=== PATIENT | female | born 1965 | race American Indian/Alaskan Native ===

== ENCOUNTER 2017-07-04 06:02 | Day surgery (SDC) | payer BC ==
[2017-07-04] MEDS ORDERED: MARCAINE 0.25% INFILTRATI ONE ×2 (06:34→07:24)
[2017-07-04] MEDS ORDERED: XYLOCAINE 1% 20 mL ONE (06:34)
[2017-07-04] MEDS ORDERED: NEOSPORIN GU IR ONE (06:35)
[2017-07-04] MEDS ORDERED: DECADRON ONE (06:35)
--- NOTE | 2017-07-04 06:52 | Anesthesia Day of Surgery ---
Anesthesia Day of Surgery - Day of Surgery Patient Examined: Yes Patient H&P Reviewed: Yes Patient is NPO: Yes
--- NOTE | 2017-07-04 06:53 | Anesthesia Consultation ---
Anesthesia Consult and Med Hx Date of service: 07/04/17 - Airway Anesthetic Teeth Evaluation: Good ROM Head & Neck: Adequate Mental/Hyoid Distance: Adequate Mallampati Class: Class III Intubation Access Assessment: Possibly Difficult - Pulmonary Exam CTA: Yes - Cardiac Exam Cardiac Exam: RRR - Pre-Operative Health Status ASA Pre-Surgery Classification: ASA3 Proposed Anesthetic Plan: General (GA with LMA ok, PONV scop patch behind ear, denies GERD) - Pulmonary Hx Smoking: No Hx Sleep Apnea: No (EDWARD PRE SCREEN LOW RISK) - Cardiovascular System Hx Hypertension: No - Hematic Hx Anemia: Yes (NOT RECENT) - Other Systems Hx Cancer: No
[2017-07-04] MEDS ORDERED: NACL BACTERIOSTATIC INFILTRATI ONE (06:54)
[2017-07-04] MEDS ORDERED: VERSED IV NR (07:00)
[2017-07-04] MEDS ORDERED: TRANSDERM-SCOP TD NR (07:00)
[2017-07-04] MEDS ORDERED: ANCEF/STERILE WATER 2 GM/20 ML IV NR (07:00)
[2017-07-04] MEDS ORDERED: LACTATED RINGERS 1,000 ML IV SCH (07:00)
[2017-07-04] MEDS ORDERED: DIPRIVAN 10 MG/ML IV ONE (07:17)
[2017-07-04] MEDS ORDERED: SUBLIMAZE ONE (07:17)
[2017-07-04] MEDS ORDERED: XYLOCAINE MPF 2% ONE (07:18)
[2017-07-04] MEDS ORDERED: NACL 0.9% IR ONE (07:24)
[2017-07-04] MEDS ORDERED: XYLOCAINE MPF 1% INFILTRATI ONE (07:24)
[2017-07-04] MEDS ORDERED: DECADRON IM ONE (09:00)
[2017-07-04] MEDS ORDERED: ZOFRAN ONE (09:12)
[2017-07-04] MEDS ORDERED: TORADOL ONE (09:12)
--- NOTE | 2017-07-04 09:31 | Post Operative Note ---
Pre-op diagnosis: 1. Hallux valgus 2. Hammer toe 2-5 3. Soft tissue mass all right foot. Post-op diagnosis: same Findings: see operative report. Procedure: 1. Bo bunionectomy right side. 2. PIPJ arthroplasty digits two, four and five right. 3. Flexor set digit two and three right side. 4. Excision of mass right ankle. Surgeon: THEO TORRES Estimated blood loss: minimal Pathology: list (Mass right ankle) Specimen disposition: to lab Condition: stable Disposition: same day
--- NOTE | 2017-07-04 09:32 | Discharge Summary ---
Short Stay Discharge Plan Activity: advance as tolerated Weight Bearing Status: Touch Down Weight Bearing Diet: regular Wound: keep clean and dry Follow up with: ANNMARIE DISLA [Other] - 7 Days
[2017-07-04] MEDS ORDERED: DILAUDID IV PRN (10:08)
[2017-07-04] MEDS ORDERED: PERCOCET 5/325 PO NR (11:05)
[2017-07-04 11:36] VITALS: BP 130/80
--- NOTE | 2017-07-04 15:39 | Post Anesthesia Evaluation ---
- Post Anesthesia Evaluation Patient Participated: Yes Airway Patent: Yes Stable Respiratory Function: Yes Nausea/Vomiting: No Temp > 96.8F: Yes Pain Manageable: Yes Adequeate Hydration: Yes Anesthesia Complications: No
--- NOTE | 2017-07-06 00:01 | Operative Report ---
SURGEON: Gonsalo Pimentel DPM [employer]: None. PREOPERATIVE DIAGNOSES: 1. Painful hallux abductovalgus deformity, right foot. 2. Painful hammertoe deformities digits 2, 3, 4, and 5, right foot. 3. Soft tissue mass, right ankle. POSTOPERATIVE DIAGNOSIS: 1. Painful hallux abductovalgus deformity, right foot. 2. Painful hammertoe deformities digits 2, 3, 4, and 5 The right foot 3. Soft tissue mass, right ankle. PROCEDURE: 1. Modified Nelson bunionectomy with cavus osteotomy, right foot. 2. Proximal interphalangeal joint arthroplasty digits 2, 4, and 5, right foot. 3. Flexor set digits 2 and 3, right foot. 4. Excision, soft tissue mass, right ankle. ANESTHESIA: LMA anesthesia with local anesthetic consisting of 1% lidocaine plain and 0.25% Marcaine plain 50:50 mixture x 10 mL. HEMOSTASIS: Pneumatic calf tourniquet 250 mmHg x 96 minutes. ESTIMATED BLOOD LOSS: Less than 10 mL. MATERIALS: 2.7 mm fully threaded cortical screws x 2, one measuring 18 mm, one measuring 16 mm. INJECTABLES: Local as above. PATHOLOGY: Soft tissue mass, right ankle sent. COMPLICATIONS: None. OPERATIVE SUMMARY: The patient was deemed appropriate surgical candidate, brought to the operating room and placed on the operating table in normal supine position. Following induction of adequate general inhalational anesthesia, the right foot was blocked about the forefoot region as well as the ankle on the right side. The right foot, ankle, and leg were prepped and draped in the usual sterile fashion. After exsanguination, tourniquet was inflated and the following procedures were then carried out. MODIFIED NELSON BUNIONECTOMY WITH TONIA WITH OSTEOTOMY, RIGHT FOOT: Attention was directed to the dorsal medial aspect of the first metatarsophalangeal joint on the right side where a 6 cm curvilinear incision was placed overlying this area. Dissection was carried through skin layer down to the level of superficial fascia with care to direct neurovascular structures, used electrocautery deemed necessary for surgical hemostasis. Dissection was carried through this layer down to the level of deep fascia. Deep fascia was incised overlying the interspace. Dissection through the interspace revealed the level of the adductor tendon. This tendon was transected at its insertion on the fibular sesamoid. The lateral collateral ligament was also released. Attention was then directed medially where a T-shaped capsular or periosteal incision was carried out, allowing for freeing of the metatarsal head. A very large bony prominence was noted in this area consisting of the dorsal enlarged tibial epicondyle. This was removed with a sagittal saw. A Chevron-type osteotomy was then carried out first metatarsal head with a long dorsal arm. This allowed for lateral translation of the metatarsal head and then placement of internal fixation. This was accomplished in standard cavus fashion utilizing AO techniques. Excellent compression was achieved. At this time, the medial overhanging wedge of bone was removed with a sagittal saw and any rough edges were smoothed off with a rotary bur. The wound was flushed with normal saline. Any redundancy of the medial capsule was removed sharply. Closure was then carried out consisting of 2-0 and 3-0 absorbable suture to close the capsule and periosteal layer. A 4-0 absorbable suture was used in running subcutaneous fashion to close the skin layer followed by 5-0 absorbable suture in running intradermal fashion to close the skin. PROXIMAL INTERPHALANGEAL JOINT ARTHROPLASTY DIGITS 2, 4 AND 5, RIGHT FOOT: Please note the identical procedure was carried out for digits 2, 4, and 5. Any differences will be noted in the dictation. Attention was directed to the dorsal aspect of digits 2, 4 and 5 were two transverse semielliptical incisions were carried out in an oblique fashion. A football-shaped skin wedge was excised in toto. Dissection was carried down to level of the proximal interphalangeal joint. Retractors were placed medial and lateral at this joint level. Extensor tendon was transected at this level along with medial and lateral collateral ligaments. The head of the proximal phalanx, came into view and the surgical field. An oscillating saw was used to remove the head of the proximal phalanx. This will allow for adequate decompression of the flexion contracture as well as buddhism of the normal digital parabola. These wounds were flushed with normal saline. Closure of the extensor tendon as well as collateral ligaments was carried out with a 4-0 absorbable suture. Skin layer was then closed utilizing nylon suture in a mattress fashion. FLEXOR SET DIGITS 2 AND 3, RIGHT FOOT: Attention was directed to the plantar sulcus of digits 2 and 3 on the right foot. A 15 blade was used to release both long and short flexors at the distal interphalangeal joint level. This released the significant flexion contracture that was noted. These wounds were flushed with normal saline and closed with simple nylon suture in this area. On the third toe, consideration was given to the redundancy in the dorsal tissue fold at the distal interphalangeal joint level and therefore, two transverse incisions were carried out here as well and this football-shaped skin wedge consisting of limb that was also removed. This was flushed and also repaired in a similar fashion utilizing 5-0 nylon suture in a mattress fashion. EXCISION OF SOFT TISSUE MASS, RIGHT ANKLE: Attention was then directed to the lateral aspect of the right ankle where a very large lipomatous lesion was identified. A 6 cm oblique incision was placed in the relaxed skin tension lines. Dissection was carried through the skin layer down to level superficial fascia with care to retract neurovascular structures, used electrocautery as deemed necessary for surgical hemostasis. Dissection was carried down to the level through the subcutaneous tissue. A very large plug of fat was identified in this area. This was completely circumscribed. Attempts were made to avoid any neurovascular embarrassment and I maintained as much fat around the dorsal cutaneous nerves as possible. This lipomatous lesion was fairly large and extensive approximately 3 x 3 cm and was sent for histopathologic diagnosis. The wound was flushed with normal saline. A deep retention suture was placed and the remaining subcutaneous tissue consisting with 3-0 absorbable suture. Skin layer was closed with 4-0 and 5-0 absorbable suture as in the bunion closure above. All wounds were then painted with Mastisol and Steri-Strips were applied. A dry sterile dressing was then applied to the right foot and ankle along with an Josef wrap. The tourniquet was deflated normal capillary refill returned to all digits. The patient tolerated the above procedures and anesthesia well without complications. Vital signs are stable throughout. She will be discharged with home going instructions. Keep the dressings clean, dry, and intact. Follow up in the office in 1 week. JOB# [id number] DAKOTA/ROSALBA
== END 2017-07-04 11:35 | disposition home or self-care (01) ==
LOC: OR 06:02
PROVIDERS: ATTEND Podiatrist Foot & Ankle Surgery
DX: M20.11 Hallux valgus (acquired), right foot (principal); M20.41 Other hammer toe(s) (acquired), right foot; M79.9 Soft tissue disorder, unspecified; K21.9 Gastro-esophageal reflux disease without esophagitis; E66.9 Obesity, unspecified; Z68.36 Body mass index [BMI] 36.0-36.9, adult; Z98.51 Tubal ligation status; Z98.890 Other specified postprocedural states
CPT/HCPCS: 27632; 28232; 28285; 28296; 81025; 88304; J0690; J1100; J1170; J1885; J2250; J2405; J2704; J3010; J7120; L8699; 88307